=== PATIENT | male | born 2000 | race Caucasian/White ===

== ENCOUNTER 2022-11-06 12:02 | Emergency (ER) | payer MEDICAID ==
[~2022-11-06] VITALS: Ht 193 cm; Wt 108.4 kg
[2022-11-06 12:30] VITALS: BP_SYST 126
--- NOTE | 2022-11-06 12:35 | NUR ---
Patient triaged and placed in waiting room. VSS and patient appears in no acute distress at this time. Accompanied by SELF, awaiting available bed, and MD notified of need for MSE.
--- NOTE | 2022-11-06 12:40 | NUR ---
Patient to ER bed TRIAGE to gown for evaluation. Side rails up.
--- NOTE | 2022-11-06 12:41 | NUR ---
ER at bedside examining patient.
[2022-11-06] MEDS ORDERED: TRAM50TA2 PO (13:34)
[2022-11-06] MEDS ORDERED: NAPR-688 PO (13:34)
--- NOTE | 2022-11-06 13:40 | NUR ---
Patient given written and verbal discharge instructions and verbalizes understanding. ER MD discussed with patient the results and treatment provided. Patient in stable condition. ID arm band removed. Rx of NAPROXEN,TRAMADOL given. Patient educated on pain management and to follow up with PMD. Pain Scale 0. Opportunity for questions provided and answered. Medication side effect fact sheet provided.
== END 2022-11-06 13:40 | disposition home or self-care (01) ==
LOC: SED 12:02
DX: R07.89 Other chest pain (principal); Z79.899 Other long term (current) drug therapy
CPT/HCPCS: 71045; 93005; 99283